=== PATIENT | male | born 1965 | race Caucasian/White ===

== ENCOUNTER 2022-10-09 12:25 | Emergency (ER) | payer BC ==
[2022-10-09] MEDS ORDERED: ALBUTEROL SO4 2.5/IPRATROPIUM 0.5 INH SOL 3 ML VIAL.NEB. NEB ONE (13:00)
[2022-10-09] MEDS: ALBUTEROL SO4 2.5/IPRATROPIUM 0.5 INH SOL 3 ML VIAL.NEB. NEB SCH ×3 (13:05→13:43)
[2022-10-09 13:18] VITALS: BP 155/70; TEMP 98.4; BMI 50.6
[2022-10-09 13:43] VITALS: PULSE 89; RESP 18
== END 2022-10-09 13:52 | disposition home or self-care (01) ==
LOC: FER 12:25
DX: J45.20 Mild intermittent asthma, uncomplicated (principal)
CPT/HCPCS: 0241U-QW; 99283-25

== ENCOUNTER 2023-01-09 13:20 | Emergency (ER) | payer BC ==
[2023-01-09] MEDS ORDERED: ALBUTEROL SO4 2.5/IPRATROPIUM 0.5 INH SOL 3 ML VIAL.NEB. NEB ONE ×2 (13:28→13:30)
[2023-01-09 13:29] VITALS: BP 165/91; PULSE 72; RESP 18; TEMP 98.5; BMI 46.0
[2023-01-09] MEDS ORDERED: DEXAMETHASONE 4 MG TABLET (FP) PO ONE (13:29)
[2023-01-09] MEDS ORDERED: DEXAMETHASONE SOD PHOSPHATE/PF 10 MG/ML SDV ONE (13:32)
== END 2023-01-09 14:10 | disposition home or self-care (01) ==
LOC: FER 13:20
PROC: 3E0F7GC Introduction of Other Therapeutic Substance into Respiratory Tract, Via Natural or Artificial Opening (ICD-10-PCS; principal; 2023-01-09)
DX: J45.909 Unspecified asthma, uncomplicated (principal)
CPT/HCPCS: 99283-25